=== PATIENT | male | born 1975 | race Hispanic/Latino ===

== ENCOUNTER 2022-11-21 12:16 | Emergency (ER) | payer MEDICARE ==
[~2022-11-21] VITALS: Ht 180.3 cm; Wt 68.0 kg
[2022-11-21 12:21] VITALS: O2SAT 100
== END 2022-11-21 13:22 | disposition home or self-care (01) ==
LOC: ER 12:25
DX: R19.7 Diarrhea, unspecified (principal); B20 Human immunodeficiency virus [HIV] disease
CPT/HCPCS: 99282